=== PATIENT | male | born 1950 | race Hispanic/Latino ===

== ENCOUNTER → 2025-01-08 | Outpatient (CLI) | payer OTHER ==
--- NOTE | 2025-01-08 21:02 | HMCSR ---
APPROVED REPORT EXAM: Two-dimensional and M-mode echocardiogram with Doppler and color Doppler. 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 2D Dimensions RVDd 4.2 cm LVEF(%) 37.2 (>50%) LVED Vol(simp.) 85.7 mL IVSd 1.7 (0.7-1.1cm) FS(%) 18 % LVES Vol(simp.) 42.9 mL LVDd 3.9 (3.8-5.6cm) LA (2D) 4.7 (1.6-4.0cm) LVEF(%, simp.) 50 % PWd 1.9 (0.7-1.1cm) Ao Root(2D) 3.9 (2.0-3.7cm) LA ESV INDEX (BP) 33.46 mL/m2 IVSs 1.7 cm LVOT diam 2.4 (1.8-2.4cm) LVDs 3.2 (2.5-4.0cm) IVC diam 2.6 cm PWs 2.1 cm M-Mode Dimensions EPSS 1.1 cm LA (MM) 4.5 (1.6-4.0cm) Ao Root(MM) 4.5 (2.0-3.7cm) Aortic Valve AoV Vmax 1.0 m/s Ao Peak GR 4.1 mmHg LVOT Vmax 0.8 m/s AoV VTI 0.2 m Ao Mean GR 2.6 mmHg LVOT VTI 0.17 m PARISH (VMAX) 3.35 cm2 PARISH (VTI) 3.7 cm2 Mitral Valve MV E Vmax 44.3 cm/s DECEL Time 101 ms MV A Vmax 88.0 cm/s P 1/2 T 47 ms E/A ratio 0.5 MVA (PHT) 4.7 cm2 TDI E/E' Medial 7.6 E/E' Lateral 7.2 Medial E' Peak V 5.86 cm/s Lateral E' Peak V 6.18 cm/s Pulmonary Valve PV Vmax 0.8 m/s PV VTI 0.12 m PV Mean GR 1.6 mmHg PV Peak GR 2.6 mmHg Tricuspid Valve TR Vmax 2.2 m/s RAP (EST) 15 mmHg RVSP 34.7 mmHg TR Peak GR 19.7 mmHg Left Ventricle The left ventricle is normal size. Apical septal hypokinesis, vs. pacer acitvation of apex. Severe concentric left ventricular hypertrophy. LVEF is 50- 55%. Stage I diastolic dysfunction. Right Ventricle The right ventricle is borderline dilated. The right ventricular systolic function is normal. Device lead is present in the right ventricle. Atria The left atrium size is normal. The right atrium is mildly dilated. Aortic Valve The aortic valve is trileaflet normal in structure. Trace of aortic regurgitation is present. There is no aortic valvular stenosis. Mitral Valve The mitral valve is normal in structure. There is trace of mitral valve regurgitation noted. There is no mitral valve stenosis. Tricuspid Valve The tricuspid valve is normal in structure. There is mild tricuspid valve regurgitation noted. Pulmonic Valve The pulmonary valve is normal in structure. There is no pulmonic valvular regurgitation. Great Vessels The aortic root is normal in size. IVC is dilated and collapses <50% with inspiration. Pericardium There is no pericardial effusion. Other Information Quality : Adequate Conclusion The left ventricle is normal size. Severe concentric left ventricular hypertrophy. Apical septal hypokinesis, vs. pacer acitvation of apex. LVEF is 50-55%. Stage I diastolic dysfunction. Device lead is present in the right ventricle. The aortic valve is trileaflet normal in structure. There is no pericardial effusion.
== END | disposition home or self-care (01) ==
LOC: RAH 13:37
PROVIDERS: ATTEND Chiropractor
DX: I07.1 Rheumatic tricuspid insufficiency (principal); I25.10 Atherosclerotic heart disease of native coronary artery without angina pectoris; I48.91 Unspecified atrial fibrillation
CPT/HCPCS: 93306